=== PATIENT | female | born 1935 | race African-American/Black ===

== ENCOUNTER 2016-10-30 08:59 | Emergency (ER) | payer MEDICARE, MEDICAID ==
[2016-10-30 09:39] LABS: #Basophils 0.1 thou/uL (0.0-0.2); #Eosinphils 0.1 thou/uL (0.0-0.7); #Lymphocytes 1.5 thou/uL (1.20-3.40); #Monocytes 0.6 thou/uL (0.11-0.59); #Neutrophils 3.5 thou/uL (1.40-6.50); %Basophils 1.3 % (0.0-1.0); %Eosinophils 1.2 % (0.0-10.0); %Monocytes 10.2 % (0.0-10.0); Hematocrit 39.6 % (36.0-47.0); Mean Platelet Volume 7.2 fL (7.4-10.4); Red Blood Cell (RBC) Count 3.65 mill/uL (4.20-5.40); White Blood Cell (WBC) Count 5.7 thou/uL (4.8-10.8)
[2016-10-30 09:56] LABS: Macrocytosis SLIGHT = 6-15 cells (100X) (0-5/hpf)
--- NOTE | 2016-10-30 10:42 | PICIS ---
[facility] EMERGENCY RECORD COMMUNICATIONS (10:03 LGIB) COMMUNICATIONS: Ambulance service, contacted at 1004, [facility], [facility] contacted to arrange transport back to [facility]. ADMIN MERGE: Call In WedOct 30, 2016 07:57. (09:04 BGAR) TRIAGE (09: HASA) TRIAGE NOTES: Shunt bleeding since last night. Dialysis yesterday. (09: HASA) PATIENT: NAME: Nikia Lea, AGE: 81, GENDER: female, : Sat 1935, TIME OF GREET: WedOct 30, 2016 09:00, PREFERRED LANGUAGE: Romansh, ETHNICITY: Not or , ECODE BILLING MAP: [facility], SSN: [id number], Zip Code: [address], KG WEIGHT: 68.04, PHONE: , , , PERSON ID: [id number], PAYMENT: [facility] Medicare, PCP: DO WHITFIELD KRISTEL. (09: HASA) COMPLAINT: shunt bleeding. (09: HASA) ADMISSION: URGENCY: 3 Urgent, ADMISSION SOURCE: Prison, AMBULANCE: [facility], TRANSPORT: AMBULANCE - [facility], BED: ER -04. (09: HASA) SIRS SCORING: Heart Rate 55-109 (0), Temp range 96.8-101.1 (0), respiratory rate 12-24 (0), Mental Status altered: no (0), Total SIRS Score 0. (:21 HASA) PROVIDERS: TRIAGE NURSE: Shoshana Davis RN. (09: HASA) VITAL SIGNS: BP 132/63, Pulse 82, Resp 20, (Non-Labored), Temp 98.1, (Oral), Pain 0, O2 Sat 96, on Room Air, Time 10/30/2016 09:00. (09:00 HASA) PREVIOUS VISIT ALLERGIES: Penicillins, Sulfa (Sulfonamide Antibiotics). (09: HASA) Penicillins, Sulfa (Sulfonamide Antibiotics). (09:21 HASA) KNOWN ALLERGIES Penicillins: Severity: Mild, Source: Patient, - itching Sulfa (Sulfonamide Antibiotics): - Entered category: Sulfa (Sulfonamide Antibiotics) CURRENT MEDICATIONS lisinopril: TABLET : Strength - 10 mg : ORAL Patient Dose: 10 mg Oral once a day. (09:36 HASA) Plavix: TABLET : Strength - 75 mg : ORAL Patient Dose: 75 mg Oral once a day. (09:36 HASA) Coreg: TABLET : Strength - 25 mg : ORAL Patient Dose: 25 mg Oral once a day. (09:39 HASA) atorvastatin: TABLET : Strength - 10 mg : ORAL &a-1R&a+25V*p+0X*h6498W*c202B*c15G*c2P*p-0X&a-25V&a+1R Name: Nikia Lea : 1935 F81 MedRec: [id number] AcctNum: [id number] Prepared: WedOct 30, 2016 22:48 by Interface Page 1 of 6 pMD [facility] EMERGENCY RECORD Patient Dose: 10 mg Oral once a day (in the evening). (09: HASA) Delsym: LIQUID (ML) : Strength - 30 mg/5 mL : ORAL Patient Dose: 5 mL Oral As Needed. (09: HASA) ipratropium-albuterol: AMPUL FOR NEBULIZATION (ML) : Strength - 0.5 mg-3 mg (2.5 mg base)/3 mL : INHALATION Patient Dose: 1 vial(s) Inhaler every 6 hours PRN. (09:41 HASA) Eliquis: TABLET : Strength - 2.5 mg : ORAL Patient Dose: 2.5 mg Oral 2 times a day. (09:42 HASA) Fosrenol: TABLET, CHEWABLE : Strength - 500 mg : ORAL Patient Dose: 500 mg Oral 3 times a day (with meals). (09:42 HASA) hyoscyamine sulfate: TABLET : Strength - 0.125 mg : ORAL Patient Dose: 0.125 mg Oral 2 times a day. (09:43 HASA) Imodium A-D: TABLET : Strength - 2 mg : ORAL Patient Dose: 2 mg Oral As Needed. (09:43 HASA) Lomotil: TABLET : Strength - 2.5 mg-0.025 mg : ORAL Patient Dose: 1 tab(s) Oral. (09:44 HASA) Miralax: POWDER (GRAM) : Strength - 17 gram/dose : ORAL Patient Dose: 17 g null. (: HASA) Nitrostat: TABLET, SUBLINGUAL : Strength - 0.4 mg : SUBLINGUAL Patient Dose: 0.4 mg Sublingual As Needed. (: HASA) omeprazole: CAPSULE,DELAYED RELEASE (ENTERIC COATED) : Strength - 20 mg : ORAL Patient Dose: 20 mg Oral once a day (in the morning). (: HASA) Keli-Yvonne: TABLET : Strength - 0.8 mg : ORAL Patient Dose: 1 tab(s) Oral once a day (in the morning). (: HASA) benzonatate: CAPSULE : Strength - 100 mg : ORAL Patient Dose: 100 mg Oral As Needed. (: HASA) traMADol: TABLET : Strength - 50 mg : ORAL Patient Dose: 50 mg Oral As Needed. (: HASA) VITAL SIGNS VITAL SIGNS: BP: 132/63, Pulse: 82, Resp: 20 (Non-Labored), Temp: 98.1 (Oral), Pain: 0, O2 sat: 96 on Room Air, Time: 10/30/2016 09:00. &a-1R&a+25V*p+0X*v4107B*c202B*c15G*c2P*p-0X&a-25V&a+1R Name: Nikia Lea : 1935 F81 MedRec: [id number] AcctNum: [id number] Prepared: WedOct 30, 2016 22:48 by Interface Page 2 of 6 pMD [facility] EMERGENCY RECORD (09: HASA) BP: 125/65, Pulse: 64, Resp: 16 (Non-Labored), O2 sat: 100 on Room Air, Time: 10/30/2016 09:45. (09:45 HASA) BP: 143/49, Pulse: 60, Resp: 16, O2 sat: 98 on Room Air, Time: 10/30/2016 10:15. (10:15 HASA) Temp: 98.1 (Oral), Pain: 0, Time: 10/30/2016 10:26. (10:26 HASA) NURSING ASSESSMENT: EXTREMITY UPPER (09:12 HASA) CONSTITUTIONAL: Patient arrives, via stretcher, via [facility], Unsteady gait, Lift to cart, History obtained from patient, Patient appears comfortable, Patient cooperative, Patient alert, Oriented to person, place and time, Skin warm, Skin dry, Skin normal in color, Mucous membranes pink, Mucous membranes moist, Patient is well-groomed, Patient [facility] ED [facility] for a bleeding shunt since 0400 today. Dialysis yesterday. Bleeding controlled. Denies pain. PAIN: Patient rates pain as 0 out of 10. LEFT UPPER EXTREMITY: Left upper extremity assessment findings include capillary refill less than 2 seconds, Skin color normal to hand, Skin temperature to hand warm, Distal sensation intact, Muscle tone normal, Inspection findings include: No pressure ulcer to the shoulder, Inspection findings include no pressure ulcer to the elbow, Inspection findings include no pressure ulcer. RIGHT UPPER EXTREMITY: Right upper extremity assessment findings include capillary refill less than 2 seconds, Skin color normal to hand, Skin temperature to hand warm, Distal sensation intact, Muscle tone normal, Inspection findings include: No pressure ulcer to the shoulder, Inspection findings include no pressure ulcer to the elbow, Inspection findings include no pressure ulcer, Notes: Bleeding from AV shunt. Bleeding controlled. SAFETY: Side rails up, Cart/Stretcher in lowest position, Call light within reach, Hospital ID band on. NURSING PROCEDURE: DISCHARGE NOTE (10:30 LGIB) DISCHARGE: [facility] to [facility], [facility], in a wheelchair, transported via non-urgent ambulance, accompanied by transportation economics teacher, Summary of Care printed/ provided, Patient requested and was provided an electronic copy of Discharge Instructions, Discharge instructions given to patient, Simple or moderate discharge teaching performed, Above person(s) verbalized understanding of discharge instructions and follow-up care, Patient treated and evaluated by physician. BELONGINGS: Belongings and valuables with patient at time of discharge include:, Belongings remain with patient, Valuables remain with patient. NURSING PROCEDURE: NURSE NOTES (09:54 HASA) NURSES NOTES: Notes: Patient resting in bed. Awaiting blood test results. Monitors on. In view of nurses' station. NAD. &a-1R&a+25V*p+0X*b6460D*c202B*c15G*c2P*p-0X&a-25V&a+1R Name: Nikia Lea : 1935 F81 MedRec: [id number] AcctNum: [id number] Prepared: WedOct 30, 2016 22:48 by Interface Page 3 of 6 pMD [facility] EMERGENCY RECORD NURSING PROCEDURE: WOUND CARE (09:14 HASA) PATIENT IDENTIFIER: Patient actively involved in identification process, Patient's identity verified by patient stating name, Patient's identity verified by patient stating date. WOUND CARE: Wound care indicated for preparing wound for repair, Wound site: Right AV fistula, Cause of wound: Dialysis, Notes: Placed handful of 4x4s, wrapped upper extremity with kerlex and coban. Bleeding controlled. FOLLOW-UP: After procedure, simple dressing applied, using 4x4 dressing, using kerlex dressing, wrapped with 2 inch coban, After procedure, capillary refill less than 2 seconds, After procedure, distal circulation intact, After procedure, distal motor intact, After procedure, distal sensation intact, After procedure, distal pulses present. SAFETY: Side rails up, Cart/Stretcher in lowest position, Call light within reach, Hospital ID band on. ORDER DETAILS Order Name: CBC with Differential, Status: Active, Time: 09:20 10/30/2016, User: [facility], - Ordered for: DO De Jesus William, - Entered by: DO De Jesus William - WedOct 30, 2016 09:20, - Quantity: 1. HPI EXTREMITY (09:11 WMEI) CHIEF COMPLAINT: Patient presents for evaluation of bleeding/oozing from r arm dialysis shunt. HISTORIAN: History provided by patient, Additional history obtained from EMS, pt states since returning from dialysis yesterday wrapped at ok oozing intermittently nh wanted checked out. MECHANISM OF INJURY: dialysis shunt r arm. TIME COURSE: Gradual onset of symptoms, 1, days priror to arrival. EXACERBATED BY: Patient's condition exacerbated by nothing. RELIEVED BY: Patient's condition relieved by nothing. ROS (09:15 WMEI) CONSTITUTIONAL: Historian denies chills, denies fever. EYES: Historian denies eye pain, denies eye discharge. ENT: Historian denies rhinorrhea, denies sore throat. CARDIOVASCULAR: Historian denies chest pain, no radiation. RESPIRATORY: Historian denies cough, denies shortness of breath. GI: Historian denies abdominal pain, denies nausea. GENITOURINARY FEMALE: Historian denies frequency, denies urgency. MUSCULOSKELETAL: Negative musculoskeletal review of systems. SKIN: shunt r forearm. HEMO/LYMPHATIC: see hpi on eliquis. PSYCHIATRIC: Negative psychiatric review of systems, Historian denies anxiety, denies depression. &a-1R&a+25V*p+0X*l8795J*c202B*c15G*c2P*p-0X&a-25V&a+1R Name: Nikia Lea : 1935 F81 MedRec: [id number] AcctNum: [id number] Prepared: WedOct 30, 2016 22:48 by Interface Page 4 of 6 pMD [facility] EMERGENCY RECORD PAST MEDICAL HISTORY (09:21 HASA) MEDICAL HISTORY: hypertension, end stage renal disease. dialysis shunt to rigfht arm, diabetes insipidus, heart failure. FEMALE SURGICAL HISTORY: dialysis shunt right arm, Surgical history of hysterectomy, CABG. PSYCHIATRIC HISTORY: No previous psychiatric history,. SOCIAL HISTORY: Patient denies alcohol use, Patient denies drug use, Patient has no smoking history. PHYSICAL EXAM (09:17 WMEI) CONSTITUTIONAL: Vital signs reviewed, Pulse normal, Blood pressure normal, Patient appears non toxic, Patient appears pain free. HEAD: Head exam included findings of head atraumatic, normocephalic. EYES: Conjunctiva normal, Sclera normal. ENT: Nose exam normal, Pharynx exam normal. NECK: Neck exam included findings of normal range of motion, Trachea midline. RESPIRATORY CHEST: Breath sounds clear, Chest exam included findings of chest movement symmetrical. CARDIOVASCULAR: Cardiovascular exam included findings of, rate normal, Heart sounds normal. ABDOMEN FEMALE: Abdominal exam included findings of abdomen nontender, Bowel sounds normal. UPPER EXTREMITY: shunt r arm good pulse/bruit distal pulse palpable fingers warm/dry VERY MINIMAL BLEED FROM SHUNT PUNCTURE EASILY STOPPED WITH MINIMAL PRESSURE. LOWER EXTREMITY: Lower extremity exam included findings of inspection normal, Range of motion normal, Motor strength normal, Michelle's negative, no edema. NEURO: [place] coma scale 15, Neuro exam findings include patient oriented to person, place and time, Speech normal. SKIN: Skin exam included findings of skin warm, dry, and normal in color. LYMPHATIC: Lymphatic exam normal. PSYCHIATRIC: Psychiatric exam included findings of patient oriented to person place and time, Normal affect, Judgment normal, Insight normal. LAB INTERPRETATION (10:02 WMEI) INTERPRETATION: I reviewed the lab results, hgb/hct wnl, CBC normal. EVENTS TRANSFER: Triage to Emergency Emergency Room -04. (WedOct 30, 2016 09:01 HASA) Removed from Emergency Emergency Room -04. (10:31 LGIB) &a-1R&a+25V*p+0X*v4252V*c202B*c15G*c2P*p-0X&a-25V&a+1R Name: Nikia Lea : 1935 F81 MedRec: [id number] AcctNum: [id number] Prepared: WedOct 30, 2016 22:48 by Interface Page 5 of 6 pMD [facility] EMERGENCY RECORD DOCTOR NOTES (10:02 WMEI) TEXT: cristal adrienne joseluis reviewed by dialysis/nephron tommorow. PROBLEM LIST No recorded problems DIAGNOSIS (10:04 WMEI) FINAL: PRIMARY: overcoagulated. DISPOSITION PATIENT: Disposition Type: Discharge, Disposition: *Discharge Home. (10:04 WMEI) Patient left the department. (10:31 LGIB) INSTRUCTION (10:04 WMEI) DISCHARGE: DIALYSIS SHUNT (FISTULA) BLEEDING. FOLLOWUP: DO WHITFIELD KRISTEL, [facility], [address] [place] [id number], [phone]. SPECIAL: Follow-up with your PCP/NEPHRO TOMMOROW. PRESCRIPTION No recorded prescriptions [facility] NOTES: Image captured from scanner. (10:20 LGIB) Page 2 added. Image captured from scanner. (10:20 LGIB) Page 3 added. Image captured from scanner. (10:20 LGIB) Page 4 added. Image captured from scanner. (10:20 LGIB) Page 5 added. Image captured from scanner. (10:20 LGIB) Page 6 added. Image captured from scanner. (10:21 LGIB) Page 7 added. Image captured from scanner. (10:21 LGIB) Page 8 added. Image captured from scanner. (10:21 LGIB) Page 9 added. Image captured from scanner. (10:21 LGIB) Page 10 added. Image captured from scanner. (10:21 LGIB) Page 11 added. Image captured from scanner. (10:21 LGIB) Page 12 added. Image captured from scanner. (10:21 LGIB) Page 13 added. Image captured from scanner. (10:21 LGIB) *DISCHARGE INSTRUCTIONS RECEIPT: Image captured from scanner. (10:31 LGIB) *SUPPLY CHARGE SHEET: Image captured from scanner. (10:31 LGIB) ADMIN DIGITAL SIGNATURE: DO De Jesus William. (22:36 WMEI) Gomez: BGAR=EDVIN Leach, Deborah HASA=EDVIN Davis, Shoshana LGIB=EDVIN Ochoa, Gissell WMEI=DO De Jesus William &a-1R&a+25V*p+0X*v7081Q*c202B*c15G*c2P*p-0X&a-25V&a+1R Name: Nikia Lea : 1935 F81 MedRec: [id number] AcctNum: [id number] Prepared: WedOct 30, 2016 22:48 by Interface Page 6 of 6 pMD [facility]TDD
--- NOTE | 2016-10-30 22:48 | ERRECORD ---
[facility] EMERGENCY RECORD ADMIN (09:04 [facility]) MERGE: Call In WedOct 30, 2016 07:57. HPI EXTREMITY (09:11 WMEI) CHIEF COMPLAINT: Patient presents for evaluation of bleeding/oozing from r arm dialysis shunt. HISTORIAN: History provided by patient, Additional history obtained from EMS, pt states since returning from dialysis yesterday wrapped at co oozing intermittently co wanted checked out. MECHANISM OF INJURY: dialysis shunt r arm. TIME COURSE: Gradual onset of symptoms, 1, days priror to arrival. EXACERBATED BY: Patient's condition exacerbated by nothing. RELIEVED BY: Patient's condition relieved by nothing. ROS (09:15 WMEI) CONSTITUTIONAL: Historian denies chills, denies fever. EYES: Historian denies eye pain, denies eye discharge. ENT: Historian denies rhinorrhea, denies sore throat. CARDIOVASCULAR: Historian denies chest pain, no radiation. RESPIRATORY: Historian denies cough, denies shortness of breath. GI: Historian denies abdominal pain, denies nausea. GENITOURINARY FEMALE: Historian denies frequency, denies urgency. MUSCULOSKELETAL: Negative musculoskeletal review of systems. SKIN: shunt r forearm. HEMO/LYMPHATIC: see hpi on eliquis. PSYCHIATRIC: Negative psychiatric review of systems, Historian denies anxiety, denies depression. PAST MEDICAL HISTORY (: HASA) MEDICAL HISTORY: hypertension, end stage renal disease. dialysis shunt to rigfht arm, diabetes insipidus, heart failure. FEMALE SURGICAL HISTORY: dialysis shunt right arm, Surgical history of hysterectomy, CABG. PSYCHIATRIC HISTORY: No previous psychiatric history,. SOCIAL HISTORY: Patient denies alcohol use, Patient denies drug use, Patient has no smoking history. KNOWN ALLERGIES Penicillins: Severity: Mild, Source: Patient, - itching Sulfa (Sulfonamide Antibiotics): - Entered category: Sulfa (Sulfonamide Antibiotics) CURRENT MEDICATIONS lisinopril: TABLET : Strength - 10 mg : ORAL Patient Dose: 10 mg Oral once a day. (:36 HASA) Plavix: TABLET : Strength - 75 mg : ORAL Patient Dose: 75 mg Oral once a day. (:36 HASA) &a-1R&a+25V*p+0X*q9232J*c202B*c15G*c2P*p-0X&a-25V&a+1R Name: Nikia Lea : 1935 F81 MedRec: [id number] AcctNum: [id number] Prepared: WedOct 30, 2016 22:42 by Interface Page [address] [facility] EMERGENCY RECORD Coreg: TABLET : Strength - 25 mg : ORAL Patient Dose: 25 mg Oral once a day. (09:39 HASA) atorvastatin: TABLET : Strength - 10 mg : ORAL Patient Dose: 10 mg Oral once a day (in the evening). (09:40 HASA) Delsym: LIQUID (ML) : Strength - 30 mg/5 mL : ORAL Patient Dose: 5 mL Oral As Needed. (09:40 HASA) ipratropium-albuterol: AMPUL FOR NEBULIZATION (ML) : Strength - 0.5 mg-3 mg (2.5 mg base)/3 mL : INHALATION Patient Dose: 1 vial(s) Inhaler every 6 hours PRN. (09:41 HASA) Eliquis: TABLET : Strength - 2.5 mg : ORAL Patient Dose: 2.5 mg Oral 2 times a day. (09:42 HASA) Fosrenol: TABLET, CHEWABLE : Strength - 500 mg : ORAL Patient Dose: 500 mg Oral 3 times a day (with meals). (09:42 HASA) hyoscyamine sulfate: TABLET : Strength - 0.125 mg : ORAL Patient Dose: 0.125 mg Oral 2 times a day. (09:43 HASA) Imodium A-D: TABLET : Strength - 2 mg : ORAL Patient Dose: 2 mg Oral As Needed. (09:43 HASA) Lomotil: TABLET : Strength - 2.5 mg-0.025 mg : ORAL Patient Dose: 1 tab(s) Oral. (09:44 HASA) Miralax: POWDER (GRAM) : Strength - 17 gram/dose : ORAL Patient Dose: 17 g null. (:45 HASA) Nitrostat: TABLET, SUBLINGUAL : Strength - 0.4 mg : SUBLINGUAL Patient Dose: 0.4 mg Sublingual As Needed. (09:45 HASA) omeprazole: CAPSULE,DELAYED RELEASE (ENTERIC COATED) : Strength - 20 mg : ORAL Patient Dose: 20 mg Oral once a day (in the morning). (09: HASA) Keli-Yvonne: TABLET : Strength - 0.8 mg : ORAL Patient Dose: 1 tab(s) Oral once a day (in the morning). (: HASA) benzonatate: CAPSULE : Strength - 100 mg : ORAL Patient Dose: 100 mg Oral As Needed. (: HASA) traMADol: TABLET : Strength - 50 mg : ORAL &a-1R&a+25V*p+0X*h1159B*c202B*c15G*c2P*p-0X&a-25V&a+1R Name: Nikia Lea : 1935 F81 MedRec: [id number] AcctNum: [id number] Prepared: WedOct 30, 2016 22:42 by Interface Page [address] [facility] EMERGENCY RECORD Patient Dose: 50 mg Oral As Needed. (: HASA) VITAL SIGNS VITAL SIGNS: BP: 132/63, Pulse: 82, Resp: 20 (Non-Labored), Temp: 98.1 (Oral), Pain: 0, O2 sat: 96 on Room Air, Time: 10/30/2016 09:00. (09:00 HASA) BP: 125/65, Pulse: 64, Resp: 16 (Non-Labored), O2 sat: 100 on Room Air, Time: 10/30/2016 09:45. (09:45 HASA) BP: 143/49, Pulse: 60, Resp: 16, O2 sat: 98 on Room Air, Time: 10/30/2016 10:15. (10:15 HASA) Temp: 98.1 (Oral), Pain: 0, Time: 10/30/2016 10:26. (10:26 HASA) PHYSICAL EXAM (09:17 WMEI) CONSTITUTIONAL: Vital signs reviewed, Pulse normal, Blood pressure normal, Patient appears non toxic, Patient appears pain free. HEAD: Head exam included findings of head atraumatic, normocephalic. EYES: Conjunctiva normal, Sclera normal. ENT: Nose exam normal, Pharynx exam normal. NECK: Neck exam included findings of normal range of motion, Trachea midline. RESPIRATORY CHEST: Breath sounds clear, Chest exam included findings of chest movement symmetrical. CARDIOVASCULAR: Cardiovascular exam included findings of, rate normal, Heart sounds normal. ABDOMEN FEMALE: Abdominal exam included findings of abdomen nontender, Bowel sounds normal. UPPER EXTREMITY: shunt r arm good pulse/bruit distal pulse palpable fingers warm/dry VERY MINIMAL BLEED FROM SHUNT PUNCTURE EASILY STOPPED WITH MINIMAL PRESSURE. LOWER EXTREMITY: Lower extremity exam included findings of inspection normal, Range of motion normal, Motor strength normal, Michelle's negative, no edema. NEURO: [place] coma scale 15, Neuro exam findings include patient oriented to person, place and time, Speech normal. SKIN: Skin exam included findings of skin warm, dry, and normal in color. LYMPHATIC: Lymphatic exam normal. PSYCHIATRIC: Psychiatric exam included findings of patient oriented to person place and time, Normal affect, Judgment normal, Insight normal. DOCTOR NOTES (10:02 WMEI) TEXT: cristal huggins reviewed by dialysis/nephron tommorow. PROBLEM LIST No recorded problems &a-1R&a+25V*p+0X*t2328H*c202B*c15G*c2P*p-0X&a-25V&a+1R Name: Nikia Lea : 1935 F81 MedRec: [id number] AcctNum: [id number] Prepared: WedOct 30, 2016 22:42 by Interface Page [address] [facility] EMERGENCY RECORD DIAGNOSIS (10:04 WMEI) FINAL: PRIMARY: overcoagulated. PRESCRIPTION No recorded prescriptions DISPOSITION PATIENT: Disposition Type: Discharge, Disposition: *Discharge Home. (10:04 WMEI) Patient left the department. (10:31 LGIB) Gomez: BGAR=EDVIN Leach, Deborah HASA=EDVIN Davis, Shoshana LGIB=EDVIN Ochoa, Gissell WMEI=DO De Jesus William &a-1R&a+25V*p+0X*l0738M*c202B*c15G*c2P*p-0X&a-25V&a+1R Name: Nikia Lea : 1935 F81 MedRec: [id number] AcctNum: [id number] Prepared: WedOct 30, 2016 22:42 by Interface Page 4 of 4 pMD [facility]
== END 2016-10-30 10:30 ==
LOC: BURERS 08:59
DX: D68.59 Other primary thrombophilia (principal); T82.838A Hemorrhage due to vascular prosthetic devices, implants and grafts, initial encounter; E11.22 Type 2 diabetes mellitus with diabetic chronic kidney disease; I13.2 Hypertensive heart and chronic kidney disease with heart failure and with stage 5 chronic kidney disease, or end stage renal disease; I50.9 Heart failure, unspecified; N18.6 End stage renal disease; Z99.2 Dependence on renal dialysis; Z79.899 Other long term (current) drug therapy
CPT/HCPCS: 36415; 85025; 99285

== ENCOUNTER 2017-09-24 16:42 | Emergency (ER) | payer MEDICARE, MEDICAID ==
[2017-09-24] MEDS ORDERED: Fentanyl 100 MCG/2 ML VIAL ONE ×2 (18:06→18:55)
[2017-09-24] MEDS ORDERED: Bacitracin Zinc 1 Packet ONE (18:26)
--- NOTE | 2017-09-24 19:41 | CT ---
CT OF THE BRAIN WITHOUT CONTRAST 09/24/17 Comparison is made with the prior CT of 02/25/17. A right frontal scalp hematoma is noted. The underlying skull appears intact with no sign of fracture . Internally, there is no intracranial bleeding, or extra-axial hematoma. Diffuse atrophy and chronic ischemic change is present. Mild ventricular dilation is commensurate with the degree of atrophy pre sent. Basal ganglia calcifications are present as before. The sphenoid sinus shows no air fluid level s. The visible paranasal sinuses are clear. IMPRESSION: 1. Right frontal scalp hematoma without signs of internal bleeding. 2. Atrophy and chronic ischemic change. POS: HOME
--- NOTE | 2017-09-24 19:50 | RAD ---
PELVIS ONE VIEW 09/24/17 The patient's bones are osteoporotic. This plus overlying soft tissues markedly decreases the sensiti vity of this study. No gross fractures were identified. There are no hip dislocations. The pubic symp hysis is not widened. No gross pubic bone fractures were seen. The SI joints cannot be evaluated due to overlying gas and soft tissues. The iliac and femoral arteries are densely calcified. IMPRESSION: Decreased sensitivity study showing no acute finding. POS: HOME
--- NOTE | 2017-09-24 19:51 | RAD ---
LEFT SHOULDER THREE VIEWS 09/24/17 Degenerative changes are seen in the glenohumeral joint. No acute fracture or dislocation was evident . The AC joint is not widened or off-set. A cardiac pacer is noted in place. The visible adjacent rib s appeared intact. IMPRESSION: No acute traumatic finding. POS: HOME
--- NOTE | 2017-09-24 20:09 | CT ---
CT CERVICAL SPINE 09/24/17 Comparison is made with the 01/18/16 study done at [facility]. Axial slices were acquired, th en coronal and sagittal reconstructions were done. 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 The degree of anterior sl ippage is slightly more than it was before. The distance from the back of C3 to the spinal line at th e back of C4 was about 4.7 mm before and today measured about 5.6 mm. There is further degeneration o f the disc space at that level. The C2-C3 facets appear to be somewhat fused on the left side. On the right side, there seems to be more bony fragmentation in the facet joint at this level. there is sli ght compromise of the right vertebral foramen but no more so than before. This spondylolisthesis does compromise the central canal. On today's study, the AP diameter of the canal near the midline was me asured at about 6 mm, which is rather tight. On the sagittal view, slice 22 and 23 appear to show celso es through the base of the odontoid process. While there was some lucency here previously, there appe ars to be a little bit more of a defined line going through the cortex posteriorly than was seen on t he prior study. On the other views, I cannot absolutely confirm a fracture line here, however, the fi nding is worrisome enough and different enough from before to cause concern. I am hesitant to confide ntly diagnose a fracture based upon this reconstructed view and only perhaps the barest hint of anyth ing on the axial views, however, the appearance is disturbing enough to require further followup or w orkup. The prevertebral soft tissues seem a little thick at C5 and below, but they are no different than bef ore. Disc space narrowing is present at all cervical levels. Bilateral foraminal compromise due to fa cet arthritis is present to some degree at all cervical levels above C7 and below C2. There is some g eneralized central bulging of the C2-C3, and C3-C4 discs. Small posterior osteophyte is seen centrall y at the C5 level without substantial compromise of the AP diameter of the canal. IMPRESSION: 1. Faint line at the base of the odontoid process on the lateral view that seems slightly differ ent than what is seen on the 10/09 study. Although it cannot be absolutely confirmed on the other vie ws, it is somewhat worrisome and should be followed up further. 2. Grade II spondylolisthesis of C3 on C4 which has worsened slightly since 2016. There seems to be a little more fragmentation of the C3-C4 facet joint with more lucency within it than before. 3. The above spondylolithesis cause significant central canal stenosis at the top of the C4 leve l with an AP diameter of about 6 mm which could compromise the cord. 4. Diffuse degenerative changes mentioned above at other cervical levels. 5. Not mentioned above, but present is arteriosclerotic change in the arteries as well as genera lized arterial ectasia. Findings discussed with Dr. Buam at [id number]. Also consulted with [facility] radiologist regard ing the odontoid. POS: HOME
== END 2017-09-24 19:56 | disposition short-term general hospital (02) ==
LOC: BURERS 16:42
DX: S12.110A Anterior displaced Type II dens fracture, initial encounter for closed fracture (principal); S00.83XA Contusion of other part of head, initial encounter; M25.512 Pain in left shoulder; I13.2 Hypertensive heart and chronic kidney disease with heart failure and with stage 5 chronic kidney disease, or end stage renal disease; N18.6 End stage renal disease; I50.9 Heart failure, unspecified; Z79.899 Other long term (current) drug therapy; W05.0XXA Fall from non-moving wheelchair, initial encounter
CPT/HCPCS: 70450; 72125; 72170; 94760; 96374; 96376; J3010

== ENCOUNTER 2017-10-01 14:16 | Emergency (ER) | payer MEDICARE, MEDICAID ==
[2017-10-01] MEDS ORDERED: Dextrose 50% Abboject 50 ML SYRINGE ONE (14:21)
[2017-10-01 15:00] LABS: Anion Gap 13 mmol/L (10-20); BUN (Urea Nitrogen) 25 mg/dL (9.8-20.1); Calc. Creatinine Clearance 0 mL/min (70-130); Calcium 6.7 mg/dL (7.8-10.44); Carbon Dioxide 26 mmol/L (23-31); Chloride 104 mmol/L (98-107); Estimated GFR-MDRD 16; Glucose 131 mg/dL (83-110); Potassium 3.7 mmol/L (3.5-5.1); Sodium 139 mmol/L (136-145)
== END 2017-10-01 20:11 | disposition home or self-care (01) ==
LOC: BURERS 14:16
DX: E11.649 Type 2 diabetes mellitus with hypoglycemia without coma (principal); I25.10 Atherosclerotic heart disease of native coronary artery without angina pectoris; K21.9 Gastro-esophageal reflux disease without esophagitis; I13.2 Hypertensive heart and chronic kidney disease with heart failure and with stage 5 chronic kidney disease, or end stage renal disease; E23.2 Diabetes insipidus; I50.9 Heart failure, unspecified; N18.6 End stage renal disease; D64.9 Anemia, unspecified; F03.90 Unspecified dementia, unspecified severity, without behavioral disturbance, psychotic disturbance, mood disturbance, and anxiety; Z79.899 Other long term (current) drug therapy; Z99.2 Dependence on renal dialysis
CPT/HCPCS: 36416; 80048; 96374